=== PATIENT | male | born 1955 | race Caucasian/White ===

== ENCOUNTER 2017-07-11 09:12 | Day surgery (SDC) | payer BC ==
[~2017-07-11 09:12] MED LIST: CEFAZOLIN 1 GM INJ; LIDOCAINE 2% (SDV) 5 ML INJ
[2017-07-11] MEDS ORDERED: MIDAZOLAM 1 MG/ML 2 ML INJ (10:21)
[2017-07-11] MEDS ORDERED: ROPIVACAINE 0.5 % 30 ML VIAL ×3 (10:22→12:21)
[2017-07-11] MEDS ORDERED: FENTAnyl 50 MCG/ML VIAL (10:24)
[2017-07-11] MEDS ORDERED: SOD CHLORIDE 0.9% 1,000 ML IV (10:57)
[2017-07-11] MEDS ORDERED: morphine 2 MG INJ IV (11:00)
[2017-07-11] MEDS ORDERED: ONDANSETRON 4 MG INJ IV ×2 (11:00→14:30)
[2017-07-11] MEDS ORDERED: OXYCODONE/ACETAMINOPHEN (5/325) TAB PO ×4 (11:00→14:30)
[2017-07-11] MEDS ORDERED: POVIDONE IODINE 10% 28.4 GM OINT (11:07)
[2017-07-11] MEDS ORDERED: ROCURONIUM 50 MG INJ (11:42)
[2017-07-11] MEDS ORDERED: PROPOFOL 20 ML (11:42)
[2017-07-11] MEDS ORDERED: LABETALOL HCL 20MG INJ (11:43)
[2017-07-11] MEDS ORDERED: DEXAMETHASONE 4 MG/ML 1 ML INJ (12:14)
[2017-07-11] MEDS ORDERED: ONDANSETRON 4 MG INJ (12:14)
[2017-07-11] MEDS: EPINEPHrine 1 MG/ML 30 ML INJ IRR (12:39)
[2017-07-11] MEDS ORDERED: hydrALAzine 20 MG INJ (12:41)
[2017-07-11] MEDS ORDERED: SUGAMMADEX SODIUM 200 MG/2 ML VIAL IV (13:57)
[2017-07-11] MEDS ORDERED: HYDROmorphONE (0.2 MG/ML) 10ML SYG IV ×2 (14:17→14:30)
[2017-07-11] MEDS: HYDROmorphONE (0.2 MG/ML) 10ML SYG IV ×3 (14:23→14:38)
[2017-07-11] MEDS ORDERED: ALBUTEROL 0.083% (NEB) 2.5 MG/3 ML AMP HHN (14:30)
[2017-07-11] MEDS ORDERED: KETOROLAC 30 MG INJ IV (14:30)
[2017-07-11] MEDS ORDERED: hydrALAzine 20 MG INJ IV (14:30)
[2017-07-11] MEDS ORDERED: MEPERIDINE 25 MG INJ IV (14:30)
[2017-07-11] MEDS ORDERED: EPHEDrine SULFATE 50 MG/5 ML SYG IV (14:30)
[2017-07-11] MEDS ORDERED: FENTAnyl 50 MCG/ML VIAL IV ×3 (14:30)
[2017-07-11] MEDS ORDERED: METOCLOPRAMIDE 10 MG INJ IV (14:30)
[2017-07-11] MEDS ORDERED: LABETALOL HCL 20MG INJ IV (14:30)
[2017-07-11] MEDS ORDERED: MIDAZOLAM 1 MG/ML 2 ML INJ IV (14:30)
[2017-07-11] MEDS: DIPHENHYDRAMINE 50 MG INJ IV ×2 (14:42→15:12)
== END 2017-07-11 17:20 | disposition home or self-care (01) ==
LOC: SDS 09:12
DX: M25.811 Other specified joint disorders, right shoulder (principal); S43.491D Other sprain of right shoulder joint, subsequent encounter; X58.XXXD Exposure to other specified factors, subsequent encounter; M94.211 Chondromalacia, right shoulder; M75.91 Shoulder lesion, unspecified, right shoulder
CPT/HCPCS: 29823